=== PATIENT | female | born 1990 | race Two or more races ===

== ENCOUNTER 2021-10-28 01:01 | Emergency (ER) | payer MEDICAID, OTHER ==
[~2021-10-28] VITALS: Ht 160 cm; Wt 59.0 kg
--- NOTE | 2021-10-28 01:08 | NUR ---
BIB [id number] FROM HOME C/O COVID +, N/V, DIARRHEA, A/O X 4, RESPIRATORY EVEN AND UNLABORED, NOT IN RESPIRATORY DISTRESS. CONNECTED TO MONITOR. AWAITING TO BE SEEN BY
[2021-10-28] MEDS ORDERED: ONDANSETRON HCL/PF 4 MG/2 ML VIAL ONE (01:22)
[2021-10-28] MEDS ORDERED: ONDANSETRON HCL/PF 4 MG/2 ML VIAL IVP ONE (01:30)
[2021-10-28] MEDS ORDERED: IV NS 0.9% 1,000 ML BAG IV ONE (01:30)
--- NOTE | 2021-10-28 02:00 | NUR ---
LINE STARTED AT [facility] #20, BLOOD COLLECTED AND SENT TO LAB
[2021-10-28 02:05] LABS: BASOPHILS % (AUTO) 0.5 % (0.0-2.0); EOSINOPHILS % (AUTO) 0.3 % (0.0-6.0); HEMATOCRIT 24 % (33-45); HEMOGLOBIN 7.9 g/dL (11.5-14.8); LYMPHOCYTES # (AUTO) 1.4 K/uL (0.8-4.8); MEAN CORPUSCULAR HGB CONC 34 g/dl (31.0-36.0); MEAN CORPUSCULAR VOLUME 99 fL (82-100); MONOCYTES # (AUTO) 0.3 K/uL (0.1-1.30); MONOCYTES % (AUTO) 8.1 % (2.0-12.0); NEUTROPHILS % (AUTO) 54.1 % (43.0-81.0); PLATELET COUNT (AUTO) 183 K/uL (150-450); RED BLOOD CELL COUNT(AUTO) 2.38 MIL/uL (4.0-5.2); WHITE BLOOD COUNT (AUTO) 3.7 K/uL (4.3-11.0)
--- NOTE | 2021-10-28 02:10 | NUR ---
Note coltoncesar in EDM - 10/28/21 at 0212 by JANES LESLIE [id number] FROM HOME C/O COVID +, N/V, DIARRHEA, A/O X 4, RESPIRATORY EVEN AND UNLABORED, NOT IN RESPIRATORY DISTRESS. CONNECTED TO MONITOR. AWAITING TO BE SEEN BY
[2021-10-28 02:12] LABS: CALCIUM, SERUM 8.7 mg/dL (8.5-10.1); CREATININE 0.7 mg/dL (0.6-1.3); POTASSIUM 3.8 mmol/L (3.5-5.1)
[2021-10-28 02:17] LABS: ALBUMIN 4.2 g/dL (3.4-5.0); BILIRUBIN,DIRECT 0.4 mg/dL (0.0-0.2); BILIRUBIN,TOTAL 2.1 mg/dL (0.2-1.0); TOTAL PROTEIN, SERUM 7.4 g/dL (6.4-8.2)
[2021-10-28] MEDS ORDERED: ONDA4TAB5 PO (03:04)
--- NOTE | 2021-10-28 03:11 | NUR ---
Patient discharged to home in stable condition. Written and verbal after care instructions given. Patient verbalizes understanding of instruction. IV removed. Catheter intact and site benign. Pressure and 4x4 applied to site. No bleeding noted.
[2021-10-28 03:21] VITALS: BP 101/50
--- NOTE | 2021-10-28 03:21 | NUR ---
IV removed. Catheter intact and site benign. Pressure and 4x4 applied to site. No bleeding noted.Patient discharged to home in stable condition. Written and verbal after care instructions given. Patient verbalizes understanding of instruction.
== END 2021-10-28 03:45 | disposition home or self-care (01) ==
LOC: ER 01:03
DX: U07.1 COVID-19 (principal); R11.2 Nausea with vomiting, unspecified; E80.6 Other disorders of bilirubin metabolism
CPT/HCPCS: 99283; 96374; 96361; 85025; 80048; 80076; 36415; J2405; J7030